=== PATIENT | female | born 1955 | race African-American/Black ===

== ENCOUNTER 2018-02-18 16:34 | Emergency (ER) | payer OTHER ==
[~2018-02-18] VITALS: Ht 165.1 cm; Wt 73.6 kg
[2018-02-18 16:52] LABS: HEMATOCRIT 38.8 % (36.0-46.0); HEMOGLOBIN 12.9 G/DL (11.9-15.5); MCH 28.6 PG (29.0-34.0); MCHC 33.2 G/DL (30.0-36.0); PLATELET COUNT 212 K/uL (156-360); RBC DIS.WIDTH-CV 13.2 % (11.8-14.6); RBC DIS.WIDTH-SD 41.9 % (39-53); RED BLOOD COUNT 4.51 M/uL (3.80-5.20); WHITE BLOOD COUNT 12.7 K/uL (4.1-10.2)
[2018-02-18 17:05] LABS: CHLORIDE 111 mEq/L (99-109); POTASSIUM 4.2 mEq/L (3.7-5.4); SODIUM 144 mEq/L (136-147)
[2018-02-18 17:06] LABS: GLUCOSE 128 mg/dL (70-99)
[2018-02-18 17:10] LABS: CREATININE 1.2 mg/dL (0.6-1.3)
[2018-02-18 17:11] LABS: UREA NITROGEN (BUN) 22 mg/dL (9-23)
[2018-02-18 17:13] LABS: LIPASE 28 U/L (1.0-51.0)
[2018-02-18 17:14] LABS: GFR ESTIMATE (CALCULATED) 49 mL/min/
[2018-02-18 21:30] VITALS: BP 178/66
== END 2018-02-18 21:31 | disposition home or self-care (01) ==
LOC: TRA 16:34 → EME 16:34 → EDBD 16:34 → TRA 21:31
PROVIDERS: Emergency Medicine
DX: S02.612A Fracture of condylar process of left mandible, initial encounter for closed fracture (principal); S02.642A Fracture of ramus of left mandible, initial encounter for closed fracture; S01.81XA Laceration without foreign body of other part of head, initial encounter; S01.511A Laceration without foreign body of lip, initial encounter; S40.211A Abrasion of right shoulder, initial encounter; S02.5XXA Fracture of tooth (traumatic), initial encounter for closed fracture; S20.111A Abrasion of breast, right breast, initial encounter; S60.511A Abrasion of right hand, initial encounter; V18.4XXA Pedal cycle driver injured in noncollision transport accident in traffic accident, initial encounter; Y93.55 Activity, bike riding
CPT/HCPCS: 70450; 70486; 71045; 72125; 73030; 80048; 83690; 85027; 99281; 99284; J2270